=== PATIENT | male | born 1985 | race Caucasian/White ===

== ENCOUNTER 2016-06-10 11:06 | Emergency (ER) | payer OTHER ==
[2016-06-10 12:10] LABS: BASO % 0.6 % (0.2-1.2); EOS # 0.1 10_X3_uL (0.0-0.5); EOS % 3.2 % (0.8-7.0); GRAN # 1.2 10_X3_uL (1.8-5.4); HEMATOCRIT 45.6 % (40-51); HEMOGLOBIN 15.4 g/dL (13.7-17.5); LYMPH # 1.3 10_X3_uL (1.3-3.6); LYMPH % 41.8 % (21.8-53.1); MEAN CORPUSCULAR HEMOGLOBIN 29.9 pg (27.0-33.0); MEAN CORPUSCULAR HGB CONC 33.8 g/dL (32.0-36.0); MEAN CORPUSCULAR VOLUME 88.5 fL (79-92); MONO # 0.5 10_X3_uL (0.3-0.8); MONO % 15.4 % (5.3-12.2); PLATELET COUNT 185 x10_3/uL (163-337); RED BLOOD COUNT 5.15 x10_6/uL (4.6-6.1); RED CELL DISTRIBUTION WIDTH 13.1 % (11.6-14.4); WHITE BLOOD COUNT 3.1 x10_3/uL (4.2-9.1)
== END 2016-06-10 12:57 | disposition home or self-care (01) ==
LOC: ER 11:06
PROVIDERS: Family Medicine
DX: J40 Bronchitis, not specified as acute or chronic (principal); I10 Essential (primary) hypertension; Z90.49 Acquired absence of other specified parts of digestive tract; F17.210 Nicotine dependence, cigarettes, uncomplicated; Z79.899 Other long term (current) drug therapy
CPT/HCPCS: 36415; 71020; 85025; 87400; 99283